=== PATIENT | male | born 1980 | race Caucasian/White ===

== ENCOUNTER 2023-10-31 12:06 | Emergency (ER) | payer OTHER ==
[2023-10-31] MEDS ORDERED: Fluorescein Opthalmic Strip ONE (12:33)
[2023-10-31] MEDS ORDERED: Proparacaine 0.5% Opth 15 ML BOT ONE (12:33)
== END 2023-10-31 13:07 ==
LOC: EEVIPCON 12:06 → ERS 12:06
DX: S05.12XA Contusion of eyeball and orbital tissues, left eye, initial encounter (principal); W50.0XXA Accidental hit or strike by another person, initial encounter; Z87.891 Personal history of nicotine dependence
CPT/HCPCS: 70450; 70486